=== PATIENT | male | born 1965 | race Caucasian/White ===

== ENCOUNTER 2021-10-19 19:38 | Inpatient (IN) | payer OTHER ==
[~2021-10-19] VITALS: Ht 182.9 cm; Wt 83.9 kg
[2021-10-19] MEDS ORDERED: CLINDAMYCIN 600MG IV 50 ML IV ONE (20:00)
[2021-10-19] MEDS ORDERED: SODIUM CHLORIDE 0.9% 1,000 ML IV ONE ×2 (20:00→21:15)
[2021-10-19 20:19] LABS: Basophils # (auto) 0.1 10 ^3/uL (0-0.2); Basophils % (auto) 0.7 % (0.0-2.0); Eosinophils # (auto) 0.1 10 ^3/uL (0-0.8); Eosinophils % (auto) 0.8 % (0.0-7.0); Hematocrit 41.5 % (41.0-53.0); Hemoglobin 13.6 g/dL (13.5-17.5); Lymphocytes # (auto) 1.4 10 ^3/uL (0.4-5.4); Lymphocytes % (auto) 9.1 % (10.0-50.0); Mean Corpuscular Hemoglobin 30.2 pg (28.0-32.0); Mean Corpuscular Hgb Conc. 32.9 g/dL (32.0-36.0); Mean Corpuscular Volume 91.9 fL (80.0-100.0); Monocytes # (auto) 1.2 10 ^3/uL (0-1.3); Monocytes % (auto) 7.4 % (0.0-12.0); Neutrophils # (auto) 12.7 10 ^3/uL (1.6-8.6); Red Blood Cells 4.51 10^6/uL (4.5-5.90); White Blood Cell 15.5 10^3/uL (4.4-10.8)
[2021-10-19 20:36] LABS: Albumin 3.4 g/dL (3.4-5.0); Calcium 8.8 mg/dL (8.5-10.1); Potassium 4.3 mmol/L (3.5-5.1)
[2021-10-19 20:38] LABS: Lactic Acid w/Reflex 3.5 mmol/L (0.4-2.0)
[2021-10-19 20:44] LABS: BUN/Creatinine Ratio 15.6; Bilirubin, Total 0.4 mg/dL (0.2-1.0); Total Protein 8.3 g/dL (6.4-8.2)
[2021-10-19] MEDS ORDERED: InsuLIN REG 1unit/0.01ml Soln (100units/ml) IV ONE (21:15)
[2021-10-19 22:06] LABS: INR 0.94 (0.9-1.15); Partial Thromboplastin Time 27.1 sec (23.6-33.0)
[2021-10-19] MEDS ORDERED: MORPHINE SULFATE 4 MG/ML SYR/VIAL IV PRN (22:45)
[2021-10-19] MEDS ORDERED: ACETAMINOPHEN 325 MG TAB PO PRN (22:45)
[2021-10-19] MEDS ORDERED: DEXTROSE (50%) 50ML SYRG IV PRN (22:45)
[2021-10-19] MEDS ORDERED: ONDANSETRON HCL 4 MG/2 ML VIAL IV PRN (22:45)
[2021-10-19] MEDS ORDERED: hydrALAZINE HCL 20 MG/ML VL IV PRN (23:00)
[2021-10-19] MEDS ORDERED: NITROGLYCERIN 0.4 MG SL TAB SL PRN (23:45)
[2021-10-19] MEDS ORDERED: MORPHINE SULFATE INJECTION 2 MG/ML SYRG IV PRN (23:45)
[2021-10-20] VITALS (7 sets, daily range): BP systolic 133–141; BP diastolic 63–96
[2021-10-20] MEDS ORDERED: INSLANTI SC (04:00)
[2021-10-20] MEDS: ACCU-CHEK COMFORT CURVE STRIP VI SCH ×6 (04:41→22:07)
[2021-10-20] MEDS: SODIUM CHLORIDE 0.9% 1,000 ML IV SCH ×4 (06:24→23:45)
[2021-10-20] MEDS: CLINDAMYCIN 600MG IV 50 ML IV SCH ×3 (06:25→21:39)
[2021-10-20] MEDS: InsuLIN REG 1unit/0.01ml Soln (100units/ml) SC SCH ×6 (06:29→22:07)
[2021-10-20] MEDS ORDERED: INSULIN LANTUS (GLARGINE) 1 /0.01ml (100units/ml) SC SCH (07:00)
[2021-10-20] MEDS: ASCORBIC ACID 500 MG TAB PO SCH ×2 (10:00→21:39)
[2021-10-20] MEDS: HEPARIN SODIUM (PORCINE) 5000 UNITS/ML 1ML VIAL SC SCH ×2 (10:00→21:41)
[2021-10-20] MEDS: FAMOTIDINE (10MG/ML) 2ML VL IV SCH (10:00)
[2021-10-20] MEDS: MULTIPLE VITAMIN TAB PO SCH (10:00)
[2021-10-20] MEDS: ZINC SULFATE 220mg CAP or TAB PO SCH (10:00)
[2021-10-20] MEDS ORDERED: DEXTROSE (50%) 50ML SYRG IV PRN (13:45)
[2021-10-20] MEDS: cefTRIAXone 1GM/50ML D5W 50 ML IV SCH (14:01)
[2021-10-21 05:00] VITALS: BP_SYST 109; BP_SYST 127; BP_DIAS 65; BP_DIAS 81
[2021-10-21] MEDS: CLINDAMYCIN 600MG IV 50 ML IV SCH ×3 (05:42→22:55)
[2021-10-21] MEDS: InsuLIN REG 1unit/0.01ml Soln (100units/ml) SC SCH ×4 (06:19→23:28)
[2021-10-21] MEDS: ACCU-CHEK COMFORT CURVE STRIP VI SCH ×4 (06:20→22:56)
[2021-10-21 06:38] LABS: Basophils # (auto) 0.1 10 ^3/uL (0-0.2); Basophils % (auto) 0.6 % (0.0-2.0); Eosinophils # (auto) 0.4 10 ^3/uL (0-0.8); Hematocrit 34.8 % (41.0-53.0); Hemoglobin 11.7 g/dL (13.5-17.5); Mean Corpuscular Hemoglobin 30.1 pg (28.0-32.0); Mean Corpuscular Hgb Conc. 33.7 g/dL (32.0-36.0); Mean Corpuscular Volume 89.4 fL (80.0-100.0); Monocytes # (auto) 0.8 10 ^3/uL (0-1.3); Monocytes % (auto) 7.4 % (0.0-12.0); Neutrophils # (auto) 6.4 10 ^3/uL (1.6-8.6); Nucleated Red Blood Cells % 0.1 %; Red Blood Cells 3.89 10^6/uL (4.5-5.90); Red Cell Distribution Width 12.6 % (11.8-14.3); White Blood Cell 10.7 10^3/uL (4.4-10.8)
[2021-10-21 07:02] LABS: Albumin 2.5 g/dL (3.4-5.0); Calcium 8.4 mg/dL (8.5-10.1); Potassium 3.8 mmol/L (3.5-5.1)
[2021-10-21 07:08] LABS: BUN/Creatinine Ratio 19.3; Bilirubin, Total 0.3 mg/dL (0.2-1.0); Total Protein 6.4 g/dL (6.4-8.2)
[2021-10-21 08:35] VITALS: BP 133/70
[2021-10-21] MEDS: cefTRIAXone 1GM/50ML D5W 50 ML IV SCH (08:59)
[2021-10-21] MEDS: ZINC SULFATE 220mg CAP or TAB PO SCH (09:00)
[2021-10-21] MEDS: FAMOTIDINE (10MG/ML) 2ML VL IV SCH (09:00)
[2021-10-21] MEDS: MULTIPLE VITAMIN TAB PO SCH (09:00)
[2021-10-21] MEDS: HEPARIN SODIUM (PORCINE) 5000 UNITS/ML 1ML VIAL SC SCH ×2 (09:00→23:27)
[2021-10-21] MEDS: ASCORBIC ACID 500 MG TAB PO SCH ×2 (09:00→22:56)
[2021-10-21] MEDS: SODIUM CHLORIDE 0.9% 1,000 ML IV SCH (09:01)
[2021-10-21] MEDS: INSULIN LANTUS (GLARGINE) 1 /0.01ml (100units/ml) SC SCH (09:10)
[2021-10-21 13:00] VITALS: BP 130/84
[2021-10-21 18:03] VITALS: BP 159/85
[2021-10-21 22:00] VITALS: BP 136/67
[2021-10-21] MEDS: HYDROcodone-ACET 5/325MG TAB PO PRN (23:41)
[2021-10-22 05:24] VITALS: BP 116/80
[2021-10-22] MEDS: CLINDAMYCIN 600MG IV 50 ML IV SCH ×2 (06:00→22:58)
[2021-10-22] MEDS: InsuLIN REG 1unit/0.01ml Soln (100units/ml) SC SCH ×2 (07:00→22:54)
[2021-10-22] MEDS: ACCU-CHEK COMFORT CURVE STRIP VI SCH ×2 (07:00→22:58)
[2021-10-22 08:20] VITALS: BP 114/77
[2021-10-22] MEDS: cefTRIAXone 1GM/50ML D5W 50 ML IV SCH (09:40)
[2021-10-22] MEDS: ASCORBIC ACID 500 MG TAB PO SCH ×2 (10:00→22:55)
[2021-10-22] MEDS: ZINC SULFATE 220mg CAP or TAB PO SCH (10:00)
[2021-10-22] MEDS: HEPARIN SODIUM (PORCINE) 5000 UNITS/ML 1ML VIAL SC SCH ×2 (10:00→22:54)
[2021-10-22] MEDS: MULTIPLE VITAMIN TAB PO SCH (10:00)
[2021-10-22] MEDS: INSULIN LANTUS (GLARGINE) 1 /0.01ml (100units/ml) SC SCH (10:08)
[2021-10-22 12:10] VITALS: BP 139/84
[2021-10-22 16:20] VITALS: BP 130/72
[2021-10-22 22:00] VITALS: BP 128/84
[2021-10-22] MEDS: HYDROcodone-ACET 5/325MG TAB PO PRN (22:56)
[2021-10-23 05:00] VITALS: BP 125/57
[2021-10-23] MEDS: CLINDAMYCIN 600MG IV 50 ML IV SCH ×3 (05:47→22:41)
[2021-10-23] MEDS: ACCU-CHEK COMFORT CURVE STRIP VI SCH ×4 (06:09→22:42)
[2021-10-23] MEDS: InsuLIN REG 1unit/0.01ml Soln (100units/ml) SC SCH ×4 (06:09→23:05)
[2021-10-23] MEDS ORDERED: MIDAZOLAM HCL 2MG/2ML 2ml VIAL (1mg/ml) ONE (08:40)
[2021-10-23] MEDS ORDERED: ONDANSETRON HCL 4 MG/2 ML VIAL ONE (08:40)
[2021-10-23] MEDS ORDERED: fentaNYL CITRATE 100 MCG/2 ML VL ONE (08:40)
[2021-10-23] MEDS ORDERED: PROPOFOL 10 MG/ML 20 ML IV ONE (08:40)
[2021-10-23 09:00] VITALS: BP 103/75
[2021-10-23] MEDS: INSULIN LANTUS (GLARGINE) 1 /0.01ml (100units/ml) SC SCH (10:00)
[2021-10-23] MEDS: ZINC SULFATE 220mg CAP or TAB PO SCH (11:07)
[2021-10-23] MEDS: cefTRIAXone 1GM/50ML D5W 50 ML IV SCH (11:07)
[2021-10-23] MEDS: MULTIPLE VITAMIN TAB PO SCH (11:07)
[2021-10-23] MEDS: HEPARIN SODIUM (PORCINE) 5000 UNITS/ML 1ML VIAL SC SCH ×2 (11:08→22:42)
[2021-10-23] MEDS: ASCORBIC ACID 500 MG TAB PO SCH ×2 (11:09→22:41)
[2021-10-23 13:00] VITALS: BP 99/67
[2021-10-23 15:13] LABS: INR 0.96 (0.9-1.15); Partial Thromboplastin Time 26.4 sec (23.6-33.0)
[2021-10-23 16:35] VITALS: BP 141/72
[2021-10-23] MEDS ORDERED: LIDOCAINE 1% (LOCAL ANESTH.) PF 5ml SDV ID ONE (19:00)
[2021-10-23 22:00] VITALS: BP 139/72
[2021-10-23] MEDS ORDERED: HEPARIN SODIUM (PORCINE) 5000 UNITS/ML 1ML VIAL ONE (22:10)
[2021-10-23] MEDS: SODIUM CHLOR 0.9% PF (SALINE LOCK) 10ML VIAL/SYR IV SCH (22:41)
[2021-10-23] MEDS: HYDROcodone-ACET 5/325MG TAB PO PRN (23:06)
[2021-10-24 05:00] VITALS: BP 133/73
[2021-10-24] MEDS: CLINDAMYCIN 600MG IV 50 ML IV SCH ×3 (06:51→22:24)
[2021-10-24] MEDS: ACCU-CHEK COMFORT CURVE STRIP VI SCH ×4 (06:51→22:19)
[2021-10-24] MEDS: InsuLIN REG 1unit/0.01ml Soln (100units/ml) SC SCH ×4 (06:53→22:24)
[2021-10-24 08:15] VITALS: BP 124/67
[2021-10-24] MEDS: cefTRIAXone 1GM/50ML D5W 50 ML IV SCH (08:50)
[2021-10-24 09:00] VITALS: BP 124/67
[2021-10-24] MEDS: SODIUM CHLOR 0.9% PF (SALINE LOCK) 10ML VIAL/SYR IV SCH ×2 (09:34→22:19)
[2021-10-24] MEDS: ZINC SULFATE 220mg CAP or TAB PO SCH (09:34)
[2021-10-24] MEDS: ASCORBIC ACID 500 MG TAB PO SCH ×2 (09:34→22:24)
[2021-10-24] MEDS: MULTIPLE VITAMIN TAB PO SCH (09:34)
[2021-10-24] MEDS: HEPARIN SODIUM (PORCINE) 5000 UNITS/ML 1ML VIAL SC SCH ×2 (09:51→22:25)
[2021-10-24] MEDS: INSULIN LANTUS (GLARGINE) 1 /0.01ml (100units/ml) SC SCH (11:34)
[2021-10-24] MEDS ORDERED: levoFLOXacin 250MG 50 ML IV ONE (13:00)
[2021-10-24 13:27] VITALS: BP 113/57
[2021-10-24 17:10] VITALS: BP 118/64
[2021-10-24 22:00] VITALS: BP 128/70
[2021-10-25 05:00] VITALS: BP 139/78
[2021-10-25] MEDS: ACCU-CHEK COMFORT CURVE STRIP VI SCH ×2 (06:17→11:04)
[2021-10-25] MEDS: InsuLIN REG 1unit/0.01ml Soln (100units/ml) SC SCH ×2 (06:25→11:03)
[2021-10-25] MEDS: CLINDAMYCIN 600MG IV 50 ML IV SCH (06:26)
[2021-10-25 08:15] VITALS: BP 94/56
[2021-10-25] MEDS: cefTRIAXone 1GM/50ML D5W 50 ML IV SCH (08:54)
[2021-10-25 09:00] VITALS: BP 94/56
[2021-10-25] MEDS: SODIUM CHLOR 0.9% PF (SALINE LOCK) 10ML VIAL/SYR IV SCH (09:44)
[2021-10-25] MEDS: ZINC SULFATE 220mg CAP or TAB PO SCH (09:44)
[2021-10-25] MEDS: ASCORBIC ACID 500 MG TAB PO SCH (09:44)
[2021-10-25] MEDS: MULTIPLE VITAMIN TAB PO SCH (09:44)
[2021-10-25] MEDS: HEPARIN SODIUM (PORCINE) 5000 UNITS/ML 1ML VIAL SC SCH (09:55)
[2021-10-25] MEDS: INSULIN LANTUS (GLARGINE) 1 /0.01ml (100units/ml) SC SCH (09:56)
[2021-10-25] MEDS ORDERED: levoFLOXacin 500MG 100 ML IV SCH (10:00)
[2021-10-25 12:48] VITALS: BP 144/97
== END 2021-10-25 13:30 | disposition home health service (06) | DRG 720 ==
LOC: ER 19:40 → OVERFLOW 19:41 → WEST WING 10-20 02:58
PROVIDERS: ADMIT Nurse Practitioner Family; ATTEND Family Medicine
PROC: 02HV33Z Insertion of Infusion Device into Superior Vena Cava, Percutaneous Approach (ICD-10-PCS; principal; 2021-10-23)
PROC: B548ZZA Ultrasonography of Superior Vena Cava, Guidance (ICD-10-PCS; 2021-10-23)
DX: A41.9 Sepsis, unspecified organism (principal); N17.0 Acute kidney failure with tubular necrosis; E11.00 Type 2 diabetes mellitus with hyperosmolarity without nonketotic hyperglycemic-hyperosmolar coma (NKHHC); E87.1 Hypo-osmolality and hyponatremia; E11.621 Type 2 diabetes mellitus with foot ulcer; B96.20 Unspecified Escherichia coli [E. coli] as the cause of diseases classified elsewhere; L03.115 Cellulitis of right lower limb; L97.409 Non-pressure chronic ulcer of unspecified heel and midfoot with unspecified severity; Z20.822 Contact with and (suspected) exposure to COVID-19; L97.519 Non-pressure chronic ulcer of other part of right foot with unspecified severity; E78.5 Hyperlipidemia, unspecified; E11.622 Type 2 diabetes mellitus with other skin ulcer; I10 Essential (primary) hypertension; J44.9 Chronic obstructive pulmonary disease, unspecified; F12.90 Cannabis use, unspecified, uncomplicated; B95.61 Methicillin susceptible Staphylococcus aureus infection as the cause of diseases classified elsewhere; M86.8X7 Other osteomyelitis, ankle and foot; Z71.6 Tobacco abuse counseling; Z82.49 Family history of ischemic heart disease and other diseases of the circulatory system; Z83.3 Family history of diabetes mellitus; Z88.8 Allergy status to other drugs, medicaments and biological substances; Z72.0 Tobacco use
CPT/HCPCS: 36415; 36569; 71045; 73700; 73718; 80053; 80061; 82962; 83605; 85025; 85610; 85730; 87040; 87077; 87186; 87205; 87426; 93926; 96361; 96365; 96366; 96375; G0378; J0696; J1815; J1956; J2250; J2405; J2704; J3490

== ENCOUNTER 2021-11-23 20:37 | Inpatient (IN) | payer OTHER ==
[~2021-11-23] VITALS: Ht 188 cm; Wt 77.0 kg
[~2021-11-23 20:37] MED LIST: INSLANTI SC
[2021-11-23] MEDS ORDERED: DOCUSATE SOD 100 MG CAP PO PRN (22:30)
[2021-11-23] MEDS ORDERED: DEXTROSE (50%) 50ML SYRG IV PRN (22:30)
[2021-11-23] MEDS ORDERED: VANCOMYCIN PER PHARMACY 0 MG IV SCH (22:30)
[2021-11-23] MEDS ORDERED: HYDROcodone-ACET 5/325MG TAB PO PRN (22:30)
[2021-11-23] MEDS ORDERED: ACETAMINOPHEN 325 MG TAB PO PRN (22:30)
[2021-11-23] MEDS ORDERED: MORPHINE SULFATE 4 MG/ML SYR/VIAL IV PRN (22:30)
[2021-11-23] MEDS ORDERED: ONDANSETRON HCL 4 MG/2 ML VIAL IV PRN (22:30)
[2021-11-23 22:39] LABS: Basophils # (auto) 0.1 10 ^3/uL (0-0.2); Basophils % (auto) 1.3 % (0.0-2.0); Eosinophils # (auto) 0.6 10 ^3/uL (0-0.8); Eosinophils % (auto) 5.8 % (0.0-7.0); Hematocrit 37.6 % (41.0-53.0); Hemoglobin 12.9 g/dL (13.5-17.5); Lymphocytes # (auto) 2.6 10 ^3/uL (0.4-5.4); Lymphocytes % (auto) 25.9 % (10.0-50.0); Mean Corpuscular Hemoglobin 30.7 pg (28.0-32.0); Mean Corpuscular Hgb Conc. 34.3 g/dL (32.0-36.0); Mean Corpuscular Volume 89.4 fL (80.0-100.0); Monocytes # (auto) 0.6 10 ^3/uL (0-1.3); Monocytes % (auto) 6.2 % (0.0-12.0); Neutrophils # (auto) 6.1 10 ^3/uL (1.6-8.6); Neutrophils % (auto) 60.8 % (37.0-80.0); Nucleated Red Blood Cells % 0.1 %; Red Cell Distribution Width 13.2 % (11.8-14.3); White Blood Cell 10.1 10^3/uL (4.4-10.8)
[2021-11-23 22:56] LABS: Albumin 3.3 g/dL (3.4-5.0); BUN/Creatinine Ratio 20.3; Calcium 9.1 mg/dL (8.5-10.1); Potassium 4.8 mmol/L (3.5-5.1)
[2021-11-23 22:59] LABS: Bilirubin, Total 0.3 mg/dL (0.2-1.0); Total Protein 7.5 g/dL (6.4-8.2)
[2021-11-23] MEDS ORDERED: VANCOMYCIN 1GM/250ML 250 ML IV ONE (23:00)
[2021-11-24] MEDS ORDERED: NITROGLYCERIN 0.4 MG SL TAB SL PRN
[2021-11-24] MEDS ORDERED: MORPHINE SULFATE INJECTION 2 MG/ML SYRG IV PRN
[2021-11-24 04:54] LABS: LDL Cholesterol 122 mg/dL (< 100); Triglycerides 313 mg/dL (< 150)
[2021-11-24 05:05] LABS: Cholesterol 210 mg/dL (< 200); HDL Cholesterol 42 mg/dL (40-59)
[2021-11-24 07:05] LABS: Basophils # (auto) 0.1 10 ^3/uL (0-0.2); Basophils % (auto) 1.5 % (0.0-2.0); Eosinophils # (auto) 0.6 10 ^3/uL (0-0.8); Eosinophils % (auto) 7.7 % (0.0-7.0); Hematocrit 36.4 % (41.0-53.0); Hemoglobin 12.2 g/dL (13.5-17.5); Lymphocytes # (auto) 2.1 10 ^3/uL (0.4-5.4); Lymphocytes % (auto) 27.5 % (10.0-50.0); Mean Corpuscular Hemoglobin 30.2 pg (28.0-32.0); Mean Corpuscular Hgb Conc. 33.6 g/dL (32.0-36.0); Mean Corpuscular Volume 89.8 fL (80.0-100.0); Monocytes # (auto) 0.5 10 ^3/uL (0-1.3); Monocytes % (auto) 6.8 % (0.0-12.0); Neutrophils # (auto) 4.4 10 ^3/uL (1.6-8.6); Neutrophils % (auto) 56.5 % (37.0-80.0); Nucleated Red Blood Cells % 0.1 %; Red Blood Cells 4.06 10^6/uL (4.5-5.90); Red Cell Distribution Width 13.5 % (11.8-14.3); White Blood Cell 7.8 10^3/uL (4.4-10.8)
[2021-11-24 07:18] LABS: Albumin 3.1 g/dL (3.4-5.0); Calcium 8.7 mg/dL (8.5-10.1); Potassium 4.3 mmol/L (3.5-5.1)
[2021-11-24 07:23] LABS: BUN/Creatinine Ratio 21.1; Bilirubin, Total 0.3 mg/dL (0.2-1.0); Total Protein 7.2 g/dL (6.4-8.2)
[2021-11-24] MEDS: InsuLIN REG 1unit/0.01ml Soln (100units/ml) SC SCH ×2 (08:16→11:45)
[2021-11-24] MEDS: ACCU-CHEK COMFORT CURVE STRIP VI SCH ×2 (08:16→11:43)
[2021-11-24] MEDS ORDERED: AZITHROMYCIN 500MG/ 250ML 250 ML IV SCH (10:00)
[2021-11-24] MEDS ORDERED: CHOLECALCIFEROL (VITD3) 1,000UNIT=25mCg TAB PO SCH (10:00)
[2021-11-24] MEDS ORDERED: MULTIPLE VITAMIN TAB PO SCH (10:00)
[2021-11-24] MEDS ORDERED: CARVEDILOL 3.125 MG TAB PO SCH (10:00)
[2021-11-24] MEDS ORDERED: ZINC SULFATE 220mg CAP or TAB PO SCH (10:00)
[2021-11-24] MEDS ORDERED: ASCORBIC ACID 500 MG TAB PO SCH (10:00)
[2021-11-24] MEDS ORDERED: HEPARIN SODIUM (PORCINE) 5000 UNITS/ML 1ML VIAL SC SCH (10:00)
[2021-11-24] MEDS ORDERED: FAMOTIDINE (10MG/ML) 2ML VL IV SCH (10:00)
[2021-11-24] MEDS ORDERED: levoFLOXacin 750MG 150 ML IV ONE (12:15)
[2021-11-24 14:00] VITALS: BP 148/81
[2021-11-24] MEDS ORDERED: VANCOMYCIN 1GM/250ML 250 ML IV SCH (17:00)
[2021-11-24] MEDS ORDERED: ATORVASTATIN 20 MG TAB PO SCH ×2 (22:00)
[2021-11-24] MEDS ORDERED: InsuLIN REG 1unit/0.01ml Soln (100units/ml) SC SCH (22:00)
[2021-11-25] MEDS ORDERED: levoFLOXacin 750MG 150 ML IV SCH (10:00)
== END 2021-11-24 15:30 | disposition left against medical advice (07) | DRG 344 ==
LOC: ER 20:43 → OVERFLOW 11-24 00:01
PROVIDERS: ADMIT Nurse Practitioner Family; ATTEND Nurse Practitioner Family
DX: E11.621 Type 2 diabetes mellitus with foot ulcer (principal); M86.8X7 Other osteomyelitis, ankle and foot; U07.1 COVID-19; T82.524A Displacement of infusion catheter, initial encounter; E88.09 Other disorders of plasma-protein metabolism, not elsewhere classified; L03.115 Cellulitis of right lower limb; E11.21 Type 2 diabetes mellitus with diabetic nephropathy; E11.40 Type 2 diabetes mellitus with diabetic neuropathy, unspecified; E11.69 Type 2 diabetes mellitus with other specified complication; Y71.2 Prosthetic and other implants, materials and accessory cardiovascular devices associated with adverse incidents; E11.65 Type 2 diabetes mellitus with hyperglycemia; E78.5 Hyperlipidemia, unspecified; F17.210 Nicotine dependence, cigarettes, uncomplicated; I10 Essential (primary) hypertension; L98.499 Non-pressure chronic ulcer of skin of other sites with unspecified severity; Z53.29 Procedure and treatment not carried out because of patient's decision for other reasons; Z83.3 Family history of diabetes mellitus; Z88.6 Allergy status to analgesic agent; Y92.89 Other specified places as the place of occurrence of the external cause
CPT/HCPCS: 36415; 71045; 80053; 80061; 82962; 83036; 83605; 85025; 85652; 87426; 96365; 96367; 96372; 96375; G0378; J1815; J1956; J3490

== ENCOUNTER → 2022-01-13 | Emergency (ER) | payer OTHER ==
[~2022-01-13] VITALS: Ht 182.9 cm; Wt 90.7 kg
[~2022-01-13] MED LIST changes: +DOCUSATE SOD 100 MG CAP PO PRN; +ENOXAPARIN SOD 40 MG/0.4 ML SYRINGE SC SCH; +LACTATED RINGER'S 1,000 ML IV ONE; +ONDANSETRON HCL 4 MG/2 ML VIAL IV PRN; +SODIUM CHLORIDE 0.9% 1,000 ML IV SCH; +TEMAZEPAM 15 MG CAP PO PRN
[2022-01-13 22:07] VITALS: BP 132/86
[2022-01-14 00:02] LABS: Basophils # (auto) 0.1 10 ^3/uL (0-0.2); Basophils % (auto) 0.7 % (0.0-2.0); Eosinophils # (auto) 0.3 10 ^3/uL (0-0.8); Eosinophils % (auto) 1.6 % (0.0-7.0); Hematocrit 32.7 % (41.0-53.0); Hemoglobin 11.1 g/dL (13.5-17.5); Lymphocytes # (auto) 1.8 10 ^3/uL (0.4-5.4); Lymphocytes % (auto) 9.7 % (10.0-50.0); Mean Corpuscular Hemoglobin 30.1 pg (28.0-32.0); Mean Corpuscular Hgb Conc. 33.8 g/dL (32.0-36.0); Mean Corpuscular Volume 88.9 fL (80.0-100.0); Monocytes # (auto) 1.3 10 ^3/uL (0-1.3); Monocytes % (auto) 7.3 % (0.0-12.0); Neutrophils # (auto) 14.8 10 ^3/uL (1.6-8.6); Neutrophils % (auto) 80.7 % (37.0-80.0); Red Blood Cells 3.68 10^6/uL (4.5-5.90); Red Cell Distribution Width 13.4 % (11.8-14.3); White Blood Cell 18.3 10^3/uL (4.4-10.8)
[2022-01-14 00:21] LABS: Albumin 2.6 g/dL (3.4-5.0); Calcium 8.5 mg/dL (8.5-10.1); Potassium 4.7 mmol/L (3.5-5.1)
[2022-01-14 00:25] LABS: Bilirubin, Total 0.4 mg/dL (0.2-1.0); Total Protein 7.7 g/dL (6.4-8.2)
[2022-01-14 00:26] LABS: BUN/Creatinine Ratio 13.5
[2022-01-14 00:55] LABS: CRP High Sensitivity 14.2 mg/dL (< 0.3)
== END | disposition left against medical advice (07) ==
LOC: ER 22:06
DX: S99.921A Unspecified injury of right foot, initial encounter (principal); Z53.21 Procedure and treatment not carried out due to patient leaving prior to being seen by health care provider; X58.XXXA Exposure to other specified factors, initial encounter; Y93.89 Activity, other specified; Y92.89 Other specified places as the place of occurrence of the external cause; Y99.8 Other external cause status
CPT/HCPCS: 36415; 73610; 73630; 80053; 85025; 85652; 86141; 93005

== ENCOUNTER 2022-01-16 23:22 | Inpatient (IN) | payer OTHER ==
[~2022-01-16] VITALS: Ht 182.9 cm; Wt 81.6 kg
[~2022-01-16 23:22] MED LIST changes: -DOCUSATE SOD 100 MG CAP PO PRN; -ENOXAPARIN SOD 40 MG/0.4 ML SYRINGE SC SCH; -LACTATED RINGER'S 1,000 ML IV ONE; -ONDANSETRON HCL 4 MG/2 ML VIAL IV PRN; -SODIUM CHLORIDE 0.9% 1,000 ML IV SCH; -TEMAZEPAM 15 MG CAP PO PRN
[2022-01-17 00:28] LABS: Basophils # (auto) 0.1 10 ^3/uL (0-0.2); Mean Corpuscular Hemoglobin 29.8 pg (28.0-32.0); Red Blood Cells 3.91 10^6/uL (4.5-5.90)
[2022-01-17 00:30] LABS: Basophils % (auto) 0.5 % (0.0-2.0); Eosinophils # (auto) 0.2 10 ^3/uL (0-0.8); Eosinophils % (auto) 1.2 % (0.0-7.0); Hematocrit 34.5 % (41.0-53.0); Hemoglobin 11.6 g/dL (13.5-17.5); Lymphocytes % (auto) 9.8 % (10.0-50.0); Mean Corpuscular Hgb Conc. 33.7 g/dL (32.0-36.0); Mean Corpuscular Volume 88.5 fL (80.0-100.0); Monocytes # (auto) 1.5 10 ^3/uL (0-1.3); Monocytes % (auto) 7.4 % (0.0-12.0); Neutrophils # (auto) 16.5 10 ^3/uL (1.6-8.6); Neutrophils % (auto) 81.1 % (37.0-80.0); Red Cell Distribution Width 13.7 % (11.8-14.3); White Blood Cell 20.4 10^3/uL (4.4-10.8)
[2022-01-17 00:43] LABS: BUN/Creatinine Ratio 16.9; Calcium 8.6 mg/dL (8.5-10.1); Potassium 4.4 mmol/L (3.5-5.1)
[2022-01-17] MEDS ORDERED: metroNIDAZOLE 500MG/100ML 100 ML IV ONE (04:30)
[2022-01-17] MEDS ORDERED: PIPERACILLIN-TAZO 4.5GM 100 ML IV ONE (04:30)
[2022-01-17] MEDS ORDERED: MORPHINE SULFATE INJECTION 2 MG/ML SYRG IV ONE (04:30)
[2022-01-17] MEDS ORDERED: VANCOMYCIN 1GM/250ML 250 ML IV ONE ×2 (04:30→05:30)
[2022-01-17 08:56] LABS: Urine Bacteria NONE SEEN /hpf (None Seen); Urine Blood Negative /uL (Negative); Urine Specific Gravity 1.033 (1.001-1.035); Urine WBC 1 /hpf (0 - 3)
[2022-01-17] MEDS ORDERED: MORPHINE SULFATE 4 MG/ML SYR/VIAL IV PRN (10:00)
[2022-01-17] MEDS ORDERED: SODIUM CHLORIDE 0.9% 3,000 ML IV ONE (10:00)
[2022-01-17] MEDS ORDERED: DEXTROSE (50%) 50ML SYRG IV PRN (10:00)
[2022-01-17] MEDS ORDERED: MORPHINE SULFATE INJECTION 2 MG/ML SYRG IV PRN (10:00)
[2022-01-17] MEDS ORDERED: VANCOMYCIN PER PHARMACY 0 MG IV SCH (10:00)
[2022-01-17] MEDS ORDERED: NICOTINE 14 MG/24HR TOPICAL PATCH TD SCH (10:00)
[2022-01-17 11:11] LABS: INR 0.99 (0.9-1.15)
[2022-01-17 11:13] VITALS: BP 135/79
[2022-01-17 11:21] LABS: Amphetamine Screen, Urine POSITIVE (NEGATIVE); Barbiturate Scree,Urine NEGATIVE (NEGATIVE); Benzodiazephine Screen, Urine NEGATIVE (NEGATIVE); Cannabinoid Screen, Urine POSITIVE (NEGATIVE); Cocaine Screen, Urine NEGATIVE (NEGATIVE); Opiate Scree,Urine NEGATIVE (NEGATIVE); Phencyclidine Screen, Urine NEGATIVE (NEGATIVE)
[2022-01-17] MEDS ORDERED: ONDANSETRON HCL 4 MG/2 ML VIAL IV PRN (11:30)
[2022-01-17] MEDS ORDERED: DOCUSATE SOD 100 MG CAP PO PRN (11:30)
[2022-01-17] MEDS ORDERED: TEMAZEPAM 15 MG CAP PO PRN (11:30)
[2022-01-17] MEDS ORDERED: SODIUM CHLORIDE 0.9% 1,000 ML IV SCH (11:30)
[2022-01-17] MEDS ORDERED: InsuLIN REG 1unit/0.01ml Soln (100units/ml) SC SCH (12:00)
[2022-01-17] MEDS ORDERED: ACCU-CHEK COMFORT CURVE STRIP VI SCH (12:00)
[2022-01-17] MEDS ORDERED: ATORVASTATIN 20 MG TAB PO SCH (22:00)
[2022-01-18] MEDS ORDERED: ENOXAPARIN SOD 40 MG/0.4 ML SYRINGE SC SCH (10:00)
== END 2022-01-17 13:30 | disposition left against medical advice (07) | DRG 720 ==
LOC: ER 23:22 → OVERFLOW 01-17 11:27
PROVIDERS: ADMIT Registered Nurse; ATTEND Registered Nurse
DX: A41.9 Sepsis, unspecified organism (principal); E11.22 Type 2 diabetes mellitus with diabetic chronic kidney disease; E11.621 Type 2 diabetes mellitus with foot ulcer; L97.519 Non-pressure chronic ulcer of other part of right foot with unspecified severity; L03.115 Cellulitis of right lower limb; L02.611 Cutaneous abscess of right foot; E78.5 Hyperlipidemia, unspecified; F17.210 Nicotine dependence, cigarettes, uncomplicated; I12.9 Hypertensive chronic kidney disease with stage 1 through stage 4 chronic kidney disease, or unspecified chronic kidney disease; Z20.822 Contact with and (suspected) exposure to COVID-19; M06.9 Rheumatoid arthritis, unspecified; Z53.29 Procedure and treatment not carried out because of patient's decision for other reasons; M19.90 Unspecified osteoarthritis, unspecified site; N18.31 Chronic kidney disease, stage 3a; Z83.3 Family history of diabetes mellitus; Z88.6 Allergy status to analgesic agent; Z88.1 Allergy status to other antibiotic agents; Z88.5 Allergy status to narcotic agent; Z88.8 Allergy status to other drugs, medicaments and biological substances
CPT/HCPCS: 36415; 71045; 80048; 80307; 81001; 83036; 83605; 85025; 85610; 85652; 87040; 96361; 96365; 96366; 96368; 96372; 96375; G0378; J2543; J3490

== ENCOUNTER 2022-03-17 18:26 | Emergency (ER) | payer OTHER ==
[~2022-03-17] VITALS: Ht 172.7 cm; Wt 81.6 kg
[2022-03-17 18:31] VITALS: BP 135/75
[2022-03-17 21:29] LABS: Basophils # (auto) 0.1 10 ^3/uL (0-0.2); Basophils % (auto) 1.8 % (0.0-2.0); Eosinophils # (auto) 0.6 10 ^3/uL (0-0.8); Eosinophils % (auto) 7.5 % (0.0-7.0); Hematocrit 29.9 % (41.0-53.0); Hemoglobin 10.2 g/dL (13.5-17.5); Lymphocytes % (auto) 26.5 % (10.0-50.0); Mean Corpuscular Hemoglobin 29.7 pg (28.0-32.0); Mean Corpuscular Hgb Conc. 34.1 g/dL (32.0-36.0); Mean Corpuscular Volume 86.9 fL (80.0-100.0); Monocytes # (auto) 0.5 10 ^3/uL (0-1.3); Monocytes % (auto) 6.6 % (0.0-12.0); Neutrophils # (auto) 4.3 10 ^3/uL (1.6-8.6); Neutrophils % (auto) 57.6 % (37.0-80.0); Nucleated Red Blood Cells % 0.1 %; Red Blood Cells 3.44 10^6/uL (4.5-5.90); Red Cell Distribution Width 15.2 % (11.8-14.3); White Blood Cell 7.5 10^3/uL (4.4-10.8)
[2022-03-17 21:55] LABS: Albumin 2.7 g/dL (3.4-5.0); Calcium 8.6 mg/dL (8.5-10.1); Potassium 4.5 mmol/L (3.5-5.1)
[2022-03-17 21:58] LABS: BUN/Creatinine Ratio 17.5
[2022-03-17] MEDS: IOHEXOL 350 MG/ML 100ML IJ ONE (21:58)
[2022-03-17 22:00] LABS: Bilirubin, Total 0.2 mg/dL (0.2-1.0); Total Protein 7.7 g/dL (6.4-8.2)
[2022-03-17] MEDS: SODIUM CHLORIDE 0.9% 1,000 ML IVB ONE (22:01)
[2022-03-17] MEDS: GABAPENTIN 300 MG CAP PO ONE (22:55)
[2022-03-18] MEDS ORDERED: GABA300C10 PO (00:07)
== END 2022-03-18 00:38 | disposition home or self-care (01) ==
LOC: ER 18:26
DX: G54.7 Phantom limb syndrome without pain (principal)
CPT/HCPCS: 36415; 73701; 80053; 83605; 85025; 85652; 86141; 87040; 96360; 99285; J7030; Q9967

== ENCOUNTER 2022-06-13 16:12 | Emergency (ER) | payer OTHER ==
[~2022-06-13] VITALS: Ht 182.9 cm; Wt 77.3 kg
[~2022-06-13 16:12] MED LIST changes: +GABA300C10 PO
[2022-06-13] MEDS ORDERED: SODIUM CHLORIDE 0.9% 1,000 ML IVB ONE (16:30)
[2022-06-13] MEDS ORDERED: ONDANSETRON HCL 4 MG/2 ML VIAL IV ONE (16:30)
[2022-06-13] MEDS ORDERED: MORPHINE SULFATE 4 MG/ML SYR/VIAL IV ONE (16:30)
[2022-06-13] MEDS ORDERED: PANTOPRAZOLE 40 MG/10 ML VIAL INJ IV ONE (16:30)
[2022-06-13 17:40] LABS: Albumin 3.6 g/dL (3.4-5.0); BUN/Creatinine Ratio 10.6; Calcium 8.8 mg/dL (8.5-10.1); Potassium 3.8 mmol/L (3.5-5.1)
[2022-06-13 17:43] LABS: Bilirubin, Total 0.5 mg/dL (0.2-1.0); Total Protein 8.7 g/dL (6.4-8.2)
[2022-06-13 17:48] LABS: Basophils # (auto) 0.2 10 ^3/uL (0-0.2); Basophils % (auto) 1.6 % (0.0-2.0); Eosinophils # (auto) 0.6 10 ^3/uL (0-0.8); Eosinophils % (auto) 4.3 % (0.0-7.0); Hematocrit 44.3 % (41.0-53.0); Hemoglobin 13.9 g/dL (13.5-17.5); Lymphocytes # (auto) 2.9 10 ^3/uL (0.4-5.4); Lymphocytes % (auto) 20.9 % (10.0-50.0); Mean Corpuscular Hemoglobin 27.5 pg (28.0-32.0); Mean Corpuscular Hgb Conc. 31.4 g/dL (32.0-36.0); Mean Corpuscular Volume 87.4 fL (80.0-100.0); Monocytes # (auto) 0.8 10 ^3/uL (0-1.3); Neutrophils # (auto) 9.2 10 ^3/uL (1.6-8.6); Neutrophils % (auto) 67.2 % (37.0-80.0); Red Blood Cells 5.06 10^6/uL (4.5-5.90); Red Cell Distribution Width 15.4 % (11.8-14.3); White Blood Cell 13.7 10^3/uL (4.4-10.8)
[2022-06-13] MEDS ORDERED: ONDA-144 PO (19:01)
[2022-06-13] MEDS ORDERED: TRAM-297 PO (19:01)
[2022-06-13 19:22] VITALS: BP 131/67
== END 2022-06-13 19:28 | disposition home or self-care (01) ==
LOC: EDBD 16:12 → ER 16:12
DX: R10.11 Right upper quadrant pain (principal); R42 Dizziness and giddiness; F12.10 Cannabis abuse, uncomplicated; Z88.6 Allergy status to analgesic agent; Z88.8 Allergy status to other drugs, medicaments and biological substances; E11.9 Type 2 diabetes mellitus without complications; E78.5 Hyperlipidemia, unspecified; I10 Essential (primary) hypertension; F17.210 Nicotine dependence, cigarettes, uncomplicated
CPT/HCPCS: 36415; 74176; 80053; 82150; 83690; 85025; 93005

== ENCOUNTER 2022-06-16 23:25 | Emergency (ER) | payer OTHER ==
[~2022-06-16] VITALS: Ht 182.9 cm; Wt 91.0 kg
[~2022-06-16 23:25] MED LIST changes: +ONDA-144 PO; +TRAM-297 PO
[2022-06-17 00:42] VITALS: BP 140/75
[2022-06-17 04:02] LABS: Basophils # (auto) 0.1 10 ^3/uL (0-0.2); Eosinophils # (auto) 0.6 10 ^3/uL (0-0.8); Eosinophils % (auto) 5.6 % (0.0-7.0); Hematocrit 37.6 % (41.0-53.0); Hemoglobin 12.7 g/dL (13.5-17.5); Lymphocytes # (auto) 2.5 10 ^3/uL (0.4-5.4); Lymphocytes % (auto) 24.5 % (10.0-50.0); Mean Corpuscular Hemoglobin 28.8 pg (28.0-32.0); Mean Corpuscular Hgb Conc. 33.7 g/dL (32.0-36.0); Mean Corpuscular Volume 85.6 fL (80.0-100.0); Monocytes # (auto) 0.8 10 ^3/uL (0-1.3); Monocytes % (auto) 7.7 % (0.0-12.0); Neutrophils # (auto) 6.3 10 ^3/uL (1.6-8.6); Neutrophils % (auto) 61.2 % (37.0-80.0); Red Blood Cells 4.39 10^6/uL (4.5-5.90); White Blood Cell 10.4 10^3/uL (4.4-10.8)
[2022-06-17 04:21] LABS: Albumin 3.5 g/dL (3.4-5.0); Calcium 8.7 mg/dL (8.5-10.1); Potassium 3.9 mmol/L (3.5-5.1)
[2022-06-17 04:24] LABS: BUN/Creatinine Ratio 27.8; Bilirubin, Total 0.2 mg/dL (0.2-1.0); Total Protein 8.1 g/dL (6.4-8.2)
[2022-06-17] MEDS ORDERED: SULF800T7 PO (10:01)
== END 2022-06-17 12:26 | disposition home or self-care (01) ==
LOC: ER 23:25
DX: E11.622 Type 2 diabetes mellitus with other skin ulcer (principal); L97.329 Non-pressure chronic ulcer of left ankle with unspecified severity; E11.65 Type 2 diabetes mellitus with hyperglycemia; I10 Essential (primary) hypertension; E78.5 Hyperlipidemia, unspecified; F17.210 Nicotine dependence, cigarettes, uncomplicated; Z79.4 Long term (current) use of insulin; Z79.899 Other long term (current) drug therapy; Z88.6 Allergy status to analgesic agent; Z88.5 Allergy status to narcotic agent; Z88.8 Allergy status to other drugs, medicaments and biological substances
CPT/HCPCS: 36415; 73700; 80053; 82962; 85025; 85652; 87040